=== PATIENT | male | born 1965 | race American Indian/Alaskan Native ===

== ENCOUNTER 2016-11-21 09:10 | Outpatient (CLI) | payer OTHER ==
--- NOTE | 2016-11-21 11:58 | Mammography Report ---
BILATERAL DIGITAL DIAGNOSTIC MAMMOGRAM with CAD and RIGHT BREAST ULTRASOUND: 11/21/16 10:00:00 CLINICAL: 51-year-old male with a right breast lump. COMPARISON:None. FINDINGS: The breasts entirely fatty with minimal subareolar fibroglandular densities. No mass, architectural distortion or suspicious calcifications. Ultrasound of the the right breast in the area of a palpable lump demonstrates a superficial heterogeneous predominantly hyperechoic oval mass with ill-defined margins at 9 o'clock 2.5 cm from the nipple. It measures approximately 1.4 x 0.6 x 0.8 cm. The technologist described several additional smaller less well-defined hyperechoic areas in the breast at 8 o'clock and 7 o'clock and 6 o'clock. IMPRESSION: A probably benign 1.4 cm predominantly hyperechoic breast mass at 9 o'clock 2.5 cm from the nipple. The sonographic appearance is suggestive of benign fat necrosis and there are additional less well-defined hyperechoic areas in the lower outer quadrant which are suggestive of benign fat necrosis. BI-RADS CATEGORY: 3 - - Probably Benign RECOMMENDATION: Short-term followup with ultrasound in three months. COMMENT: Patient follow-up letters are generated by our [employer] application.
== END 2016-11-21 09:11 | disposition home or self-care (01) ==
LOC: MAMMO 09:10
PROVIDERS: ATTEND Surgery
DX: N63 Unspecified lump in breast (principal)
CPT/HCPCS: 76642; G0204; 77066